=== PATIENT | male | born 1955 | race Caucasian/White ===

== ENCOUNTER 2023-06-15 08:30 | Emergency (ER) | payer OTHER ==
[2023-06-15 09:14] LABS: Specific Gravity 1.013 (1.005-1.030); Urine Bacteria None Seen /HPF (<20); Urine Bilirubin NEGATIVE (Negative); Urine Blood Negative (Negative); Urine Clarity Clear (Clear); Urine Color Light-Yellow (Yellow); Urine Glucose NEGATIVE (Negative); Urine Protein NEGATIVE (Negative); Urine RBC <5 /HPF (None Seen); Urine Urobilinogen Normal (Normal)
[2023-06-15 09:17] LABS: Absolute Lymphocytes (CBC) 1.1 K/uL (0.7-4.9); Hematocrit 40.7 % (39.6-49.0); Lymphocytes % 16.1 % (15.3-44.8); MCV 93.6 fL (80-100); MPV 7.8 fL (7.6-11.3); Platelets 299 thou/uL (152-406); RBC Red Blood Cell Count 4.35 M/uL (4.33-5.43)
[2023-06-15 09:33] LABS: Potassium 3.1 mEq/L (3.5-5.1)
--- NOTE | 2023-06-15 10:25 | RAD REPORT ---
EXAM DESCRIPTION: CT - Abdomen Pelvis W Contrast - 06/15/2023 10:03 am CLINICAL HISTORY: urinary retention;Constipation COMPARISON: No comparisons TECHNIQUE: Thin cut axial CT imaging of the abdomen and pelvis was performed following intravenous a dministration of 100 mL Isovue 300. Multiplanar reformats were generated and reviewed. All CT scans are performed using dose optimization technique as appropriate and may include automated exposure control or mA/KV adjustment according to patient size. FINDINGS: No suspicious findings in the lung bases. The liver, spleen, and pancreas show no suspicious findings. Gallbladder show small gallstones near t he neck. No intra or extrahepatic biliary ductal dilation. Symmetric renal function is seen with no hydronephrosis or suspicious renal mass. No dilated bowel loops or bowel wall thickening. No free air, free fluid or inflammatory stranding. N o hernia, mass or bulky lymphadenopathy. The urinary bladder is markedly distended, without focal les ions. Prostatomegaly with calcifications. Lobulated projection of the median lobe of the prostate kayleigh ng the neck of the bladder. No suspicious bony findings. IMPRESSION: Markedly distended urinary bladder. Prostatomegaly with lobulated projection of the median lobe of the prostate along the neck of the halie dder. Cholelithiasis.
--- NOTE | 2023-06-15 10:39 | ER ---
Nurse's Notes [facility] Name: Tyler Luther Age: 67 yrs Sex: Male : 1955 Arrival Date: 06/15/2023 Time: 08:30 Bed 20 Private MD: Diagnosis: Enlarged prostate with lower urinary tract symptoms Presentation: 06/15 08:41 Chief complaint: Patient states: Pt reports he had a surgical procedure on to ss his R hand and after that began having urgency/ frequency with urination and now burning. Coronavirus screen: Client denies travel out of the [place] in the last 14 days. Ebola Screen: Patient denies exposure to infectious person. Patient denies travel to an Ebola-affected area in the 21 days before illness onset. Initial Sepsis Screen: Does the patient meet any 2 criteria? No. Patient's initial sepsis screen is negative. Does the patient have a suspected source of infection? No. Patient's initial sepsis screen is negative. Risk Assessment: Do you want to hurt yourself or someone else? Patient reports no desire to harm self or others. Onset of symptoms was June 11, 2023. 08:41 Method Of Arrival: Ambulatory ss 08:41 Acuity: JUNI 3 ss Historical: - Allergies: 08:44 No Known Allergies; ss - PMHx: 08:44 BPH; ss - PSHx: 08:44 Tumor removed from R hand; ss - Immunization history:: Client reports receiving the 2nd dose of the Covid vaccine. - Social history:: Smoking status: Patient denies any tobacco usage or history of. Screenin:11 [facility] ED Fall Risk Assessment (Adult) Score/Fall Risk Level 0 - 2 = Low Risk. Abuse me1 screen: Denies threats or abuse. Nutritional screening: No deficits noted. Tuberculosis screening: No symptoms or risk factors identified. Assessment: 09:11 General: Appears uncomfortable, well groomed, well developed, well nourished, Behavior me1 is calm, cooperative, appropriate for age, Reports having sx on right hand on and has had urgency/frequency and burning with urination since. Does report suprapubic pain. Pain: Complains of pain in abdomen Pain does not radiate. Pain currently is 4 out of 10 on a pain scale. Quality of pain is described as tender, Pain began gradually, 2-3 days ago. Neuro: Level of Consciousness is awake, alert, obeys commands, Oriented to person, place, time, situation, Appropriate for age. Cardiovascular: Capillary refill < 3 seconds Patient's skin is warm and dry. Respiratory: Respiratory effort is even, unlabored, Respiratory pattern is regular, symmetrical. : Reports burning with urination, urgency, urinary frequency, since after his hand surgery. :. Musculoskeletal: incision to right hand with sutures. Vital Signs: 08:41 BP 184 / 100; Pulse 84; Resp 16; Temp 98(O); Pulse Ox 100% ; Weight 86.18 kg; Height 5 ss ft. 8 in. ; Pain 8/10; 09:11 BP 175 / 101; Pulse 112; Resp 17; Pulse Ox 95% on R/A; Pain 4/10; me1 09:40 BP 183 / 95; Pulse 53; Resp 17; Pulse Ox 99% on R/A; ph 11:14 BP 184 / 101; Pulse 57; Resp 16; Pulse Ox 97% on R/A; Pain 2/10; me1 11:32 BP 186 / 93; Pulse 57; Resp 18; Pulse Ox 96% on R/A; me1 08:41 Body Mass Index 28.89 (86.18 kg, 172.72 cm) ss 08:41 Pain Scale: Adult ss 09:11 Pain Scale: Adult me1 11:14 Pain Scale: Adult me1 ED Course: 08:33 Patient arrived in ED. rg4 08:41 Jackelin Harris FNP [facility]. jh7 08:41 Sahil Ibrahim MD is Attending Physician. [facility] 08:44 Triage completed. ss 08:44 Arm band placed on right wrist. ss 08:50 Veda Holland, [place] is Primary Nurse. me1 09:10 CBC with Diff Sent. me1 09:10 BMP Sent. me1 09:10 Urinalysis W/Microscopic Sent. me1 09:11 Patient has correct armband on for positive identification. Bed in low position. Call me1 light in reach. Side rails up X 1. Provided Education on: POC, verbalized understanding. . 09:15 Inserted saline lock: 20 gauge in left antecubital area, using aseptic technique. ph 10:05 CT Abd/Pelvis - IV Contrast Only In Process Unspecified. EDMS 10:38 Cesario Urban MD is Referral Physician. [facility] 11:04 Coud inserted, using sterile technique, 18 Fr. Returned clear yellow urine. To gravity me1 drainage. Patient tolerated well. 11:32 IV discontinued, intact, bleeding controlled, No redness/swelling at site. Pressure me1 dressing applied. 11:32 No provider procedures requiring assistance completed. me1 Administered Medications: No medications were administered Medication: 09:11 VIS not applicable for this client. me1 Output: 11:18 Urine: 1600ml (Mohr); Total: 1600ml. me1 Outcome: 10:39 Discharge ordered by . [facility] 11:32 Discharged to home with significant other. me1 11:32 Condition: stable 11:32 Condition: stable 11:32 Discharge instructions given to patient, significant other, Instructed on discharge instructions, follow up and referral plans. medication usage, mohr catheter care. Demonstrated understanding of instructions, follow-up care, medications, mohr catheter care. 11:33 Patient left the ED. me1 Signatures: Dispatcher [employer] EDMI Marie Franklin, RN RN Luna Burton RN RN Shala Becerra rg4 Jackelin Harris, METAL BURNISHER METAL BURNISHER [facility] Veda Holland, RN RN me1
--- NOTE | 2023-06-15 10:39 | EDPHYS ---
Physician Documentation [facility] Name: Tyler Luther Age: 67 yrs Sex: Male : 1955 Arrival Date: 06/15/2023 Time: 08:30 Bed 20 Private MD: ASTRID Physician Sahil Ibrahim HPI: 06/15 08:44 This 67 yrs old Male presents to ER via Ambulatory with complaints of Urinary Problem. jh7 08:44 Onset: The symptoms/episode began/occurred 4 day(s) ago. Associated signs and symptoms: jh7 Pertinent positives: dysuria, Pertinent negatives: fever. 67-year-old male presents to the ER complaining of a urinary problem. He reports that he had hand surgery on , and that evening he developed urinary frequency, urgency, and burning. He originally thought that this was related to the constipation he was experiencing, but states that the constipation cleared up. He denies any fever. Reports that he takes Flomax daily. History of hypertension and BPH.. Historical: - Allergies: 08:44 No Known Allergies; ss - PMHx: 08:44 BPH; ss - PSHx: 08:44 Tumor removed from R hand; ss - Immunization history:: Client reports receiving the 2nd dose of the Covid vaccine. - Social history:: Smoking status: Patient denies any tobacco usage or history of. ROS: 08:44 Constitutional: Negative for fever, chills, and weight loss, Eyes: Negative for injury, jh7 pain, redness, and discharge, Neck: Negative for injury, pain, and swelling, Cardiovascular: Negative for chest pain, palpitations, and edema, Respiratory: Negative for shortness of breath, cough, wheezing, and pleuritic chest pain, Abdomen/GI: Negative for abdominal pain, nausea, vomiting, diarrhea, and constipation, Back: Negative for injury and pain, Skin: Negative for injury, rash, and discoloration, Neuro: Negative for headache, weakness, numbness, tingling, and seizure. 08:44 : Positive for urinary symptoms, urinary frequency, burning with urination, Negative for injury or acute deformity, flank pain, penile pain, testicular pain 08:44 All other systems are negative. Exam: 08:44 Constitutional: This is a well developed, well nourished patient who is awake, alert, jh7 and in no acute distress. Cardiovascular: Regular rate and rhythm with a normal S1 and S2. No gallops, murmurs, or rubs. Normal PMI, no JVD. No pulse deficits. Respiratory: Lungs have equal breath sounds bilaterally, clear to auscultation and percussion. No rales, rhonchi or wheezes noted. No increased work of breathing, no retractions or nasal flaring. Abdomen/GI: Soft, non-tender, with normal bowel sounds. No distension or tympany. No guarding or rebound. No evidence of tenderness throughout. Back: No spinal tenderness. No costovertebral tenderness. Full range of motion. Male : Normal genitalia with no discharge or lesions. Skin: Warm, dry with normal turgor. Normal color with no rashes, no lesions, and no evidence of cellulitis. MS/ Extremity: Pulses equal, no cyanosis. Neurovascular intact. Full, normal range of motion. Neuro: Awake and alert, GCS 15, oriented to person, place, time, and situation. Motor strength 5/5 in all extremities. Sensory grossly intact. Normal gait. 10:35 : Bladder: output from straight cath: 1600mL. [facility] Vital Signs: 08:41 BP 184 / 100; Pulse 84; Resp 16; Temp 98(O); Pulse Ox 100% ; Weight 86.18 kg; Height 5 ss ft. 8 in. ; Pain 8/10; 09:11 BP 175 / 101; Pulse 112; Resp 17; Pulse Ox 95% on R/A; Pain 4/10; me1 09:40 BP 183 / 95; Pulse 53; Resp 17; Pulse Ox 99% on R/A; ph 11:14 BP 184 / 101; Pulse 57; Resp 16; Pulse Ox 97% on R/A; Pain 2/10; me1 11:32 BP 186 / 93; Pulse 57; Resp 18; Pulse Ox 96% on R/A; me1 08:41 Body Mass Index 28.89 (86.18 kg, 172.72 cm) ss 08:41 Pain Scale: Adult ss 09:11 Pain Scale: Adult me1 11:14 Pain Scale: Adult me1 MDM: 08:41 Patient medically screened. [facility] 10:30 Management of patient was discussed with the following: Melter Super[employer]: Dr. Urban, [facility] urology. Reviewed labs and imaging with Dr. Urban. He advised to place an 18 [place] coud catheter and send the patient home with a leg bag. The patient states that he has a urologist, Dr. Mendez in [place], and will follow-up. Dr. Urban also suggested that the patient may up his Flomax to 2 tablets a day. He reports that if the urine output is greater than 600 mL, the catheter will need to be in place for at least 1 week.. 10:40 Differential diagnosis: UTI, Prostatomegaly, bladder outlet obstruction, jh7 nephrolithiasis. Data reviewed: vital signs, nurses notes, lab test result(s), EKG, radiologic studies, CT scan. Consideration of Admission/Observation Escalation of care including admission/observation considered. Historians other than the Patient: Spouse/Significant Other: . Care significantly affected by the following chronic conditions: BPH. Counseling: I had a detailed discussion with the patient and/or guardian regarding: the historical points, exam findings, and any diagnostic results supporting the discharge/admit diagnosis, the need for outpatient follow up, a urologist, to return to the emergency department if symptoms worsen or persist or if there are any questions or concerns that arise at home. Response to treatment: the patient's symptoms have markedly improved after treatment. 06/15 08:47 Order name: Urinalysis W/Microscopic; Complete Time: 09:34 [facility] 06/15 08:47 Order name: BMP; Complete Time: 09:34 [facility] 06/15 08:47 Order name: CBC with Diff; Complete Time: 09:34 [facility] 06/15 09:50 Order name: CT Abd/Pelvis - IV Contrast Only; Complete Time: 10:27 [facility] 06/15 09:34 Order name: Recheck Vital Signs; Complete Time: 09:40 [facility] 06/15 10:33 Order name: Jaun Leg Bag; Complete Time: 11:05 [facility] Administered Medications: No medications were administered Disposition: 14:18 Co-signature as Attending Physician, Sahil Ibrahim MD I reviewed the patient's care rn provided by the Advanced Practice Provider and agree with the diagnosis and treatment plan. Disposition Summary: 06/15/23 10:39 Discharge Ordered Location: Home [facility] Problem: new [facility] Symptoms: are unchanged [facility] Condition: Stable [facility] Diagnosis - Enlarged prostate with lower urinary tract symptoms [facility] Followup: [facility] - With: Cesario Urban MD - When: 1 - 2 days - Reason: Further diagnostic work-up Discharge Instructions: - Discharge Summary Sheet 7 - Indwelling Urinary Catheter Care, Adult [facility] - Acute Urinary Retention, Male [facility] - Indwelling Urinary Catheter Insertion, Care After [facility] - Indwelling Urinary Catheter Insertion at Home, Male [facility] Forms: - Medication Reconciliation Form [facility] - Thank You Letter [facility] - Antibiotic Education [facility] - Patient Portal Instructions [facility] Prescriptions: - Cipro 500 mg Oral Tablet - take 1 tablet by ORAL route every 12 hours for 10 days; 20 tablet; Refills: 0, jh7 Product Selection Permitted Signatures: Dispatcher [employer] EDSahil Archuleta MD MD rn Blanchard, Shelby, RN RN ss Hadash, Jennifer, VOICE PATHOLOGIST VOICE PATHOLOGIST [facility]
[2023-06-15 11:48] VITALS: TEMP 98
[2023-06-15 12:01] VITALS: BP 186/93; O2SAT 96
== END 2023-06-15 11:33 | disposition home or self-care (01) ==
LOC: ER 08:30
DX: N40.1 Benign prostatic hyperplasia with lower urinary tract symptoms (principal)
CPT/HCPCS: 85025; 81001; 80048; 36415; 74177; 99284; Q9967